=== PATIENT | male | born 1980 | race Caucasian/White ===

== ENCOUNTER 2016-09-21 12:34 | Emergency (ER) | payer SELFPAY ==
[~2016-09-21] VITALS: Ht 190.5 cm; Wt 90.0 kg
[~2016-09-21 12:34] MED LIST: BACITUD TOP; BACTDS PO; CEPH-443 PO; IBUP-1542 PO
[2016-09-21 12:43] VITALS: Ht 190.5 cm; Wt 90.0 kg
[2016-09-21 13:00] VITALS: BP 132/88; PULSE 86; RESP 20; TEMP 98.3
[2016-09-21] MEDS ORDERED: TETRACAINE 0.5% 4 ML OPH RIGHT EYE ONE (13:00)
--- NOTE | 2016-09-21 15:07 | ERD ---
ER Documentation Chief Complaint Date/Time DATE: 09/21/16 TIME: 15:06 Chief Complaint BIB [facility] 39 FOR EVAL OF ETOH. UNSTEADY GAIT HPI This is a 36-year-old male presents to the emergency room for evaluation of alcohol ingestion. The patient denies any homicidal ideation or suicidal ideation and states that he did drink alcohol earlier this morning. This patient denies any other coingestions and came to the ER after Faith called 911 ROS All systems reviewed and are negative except as per history of present illness. Medications Home Meds Discontinued Scripts Ibuprofen* (Motrin*) 600 Mg Tab, 600 MG PO Q6H Y for PAIN, #15 TAB Prov:GRACIELA ELLIS MD 12/16/15 Bacitracin* (Bacitracin Oint (UD)*) 1 Applic Oint, 1 APPLIC TOP BID for 10 Days , PKT APPLY TO Prov:LAVERN MALDONADO MD 12/03/15 Cephalexin* (Keflex*) 500 Mg Capsule, 500 MG PO QID for 10 Days, CAP Prov:LAVERN MALDONADO MD 12/03/15 Sulfamethoxazole-Trimethoprim* (Bactrim* DS) 800-160 Mg Tab, 1 TAB PO BID for 10 Days, TAB Prov:LAVERN MALDONADO MD 12/03/15 Allergies Allergies: Coded Allergies: No Known Drug Allergy (Verified Allergy, Mild, 12/03/15) PMhx/Soc History of Surgery: No Anesthesia Reaction: No Hx Neurological Disorder: No Hx Respiratory Disorders: Yes (ASTHMA ) Hx Cardiac Disorders: No Hx Psychiatric Problems: No Hx Miscellaneous Medical Probl: Yes (Right foot sprain 2007) Hx Alcohol Use: No Hx Substance Use: Yes (METH, MARIJUANA ) Hx Tobacco Use: No Physical Exam Vitals Vital Signs Date Time Temp Pulse Resp B/P Pulse Ox O2 Delivery O2 Flow Rate FiO2 09/21/16 12:43 98.3 78 19 125/76 98 Physical Exam Const: Disheveled appearance Head: Atraumatic Eyes: Normal Conjunctiva ENT: Normal External Ears, Nose and Mouth. Neck: Full range of motion..~ No meningismus. Resp: Clear to auscultation bilaterally Cardio: Regular rate and rhythm, no murmurs Abd: Soft, non tender, non distended. Normal bowel sounds Skin: No petechiae or rashes Back: No midline or flank tenderness Ext: No cyanosis, or edema Neur: Awake and alert Psych: Normal Mood and Affect Results 24 hrs Laboratory Tests Test 09/21/16 13:52 Bedside Glucose 98mg/dL Current Medications Medications (Trade) Dose Ordered Sig/Camilla Route PRN Reason Start Time Stop Time Status Last Admin Dose Admin Tetracaine HCl (Tetracaine 0.5% Steri-Unit Amy) 1 drop ONCE ONCE RIGHT EYE 09/21/16 13:00 09/21/16 13:00 DC Procedures/MDM This 36-year-old male presents to the emergency room for evaluation of alcohol ingestion. This patient I did smell of alcohol, is hemodynamically stable. Not hypoglycemic will be discharged home when he is clinically sober. Departure Diagnosis: Primary Impression: Alcohol abuse Condition: Stable BRITTNEY TOMAS DO Sep 21, 2016 15:07
== END 2016-09-21 16:19 | disposition home or self-care (01) ==
LOC: E/R 12:34
DX: F10.129 Alcohol abuse with intoxication, unspecified (principal); J45.909 Unspecified asthma, uncomplicated
CPT/HCPCS: 82962; 99283

== ENCOUNTER 2016-10-13 14:42 | Emergency (ER) | payer OTHER ==
[~2016-10-13] VITALS: Ht 195.6 cm; Wt 89.0 kg
[2016-10-13 14:47] VITALS: Ht 195.6 cm; Wt 89.0 kg
[2016-10-13] MEDS ORDERED: LORAZEPAM 1 MG TAB PO ONE (15:30)
--- NOTE | 2016-10-13 15:39 | ERA ---
ER Documentation Chief Complaint Date/Time DATE: 10/13/16 Chief Complaint smoked the marijuana, has dry mouth, anxious HPI The patient is a 36-year-old male, presenting to the ER because of acute anxiety after he did marijuana. He has similar symptoms previously, denies auditory, visual hallucination, suicidal, homicidal ideation. He simply wanted medication to calm him down. He denies fever, chills, neck pain, chest pain, abdominal pain, vomiting, dysuria, diarrhea, constipation. He drinks, smokes Past medical history: Anxiety Past surgical history: None ROS All systems reviewed and are negative except as per history of present illness. Medications Home Meds No Active Prescriptions or Reported Meds Allergies Allergies: Coded Allergies: No Known Drug Allergy (Verified Allergy, Mild, 10/13/16) PMhx/Soc History of Surgery: No Anesthesia Reaction: No Hx Neurological Disorder: No Hx Respiratory Disorders: No Hx Cardiac Disorders: No Hx Psychiatric Problems: No Hx Miscellaneous Medical Probl: No Hx Alcohol Use: No Hx Substance Use: Yes (meth use 10/13/16) Hx Tobacco Use: No Smoking Status: Current every day smoker Physical Exam Vitals Vital Signs Date Time Temp Pulse Resp B/P Pulse Ox O2 Delivery O2 Flow Rate FiO2 10/13/16 14:47 98.7 71 18 102/52 98 Physical Exam Const: No acute distress. Very anxious Head: Atraumatic. Eyes: Normal Conjunctiva. ENT: Normal External Ears, Nose and Mouth. Neck: Full range of motion. No meningismus. Resp: Clear to auscultation bilaterally. Cardio: Regular rate and rhythm, no murmurs. Abd: Soft, non distended, normal bowel sounds, non tender. Skin: No petechiae or rashes. Back: No midline or flank tenderness. Ext: No cyanosis, or edema. Neur: Awake and alert. No focal deficit Psych: Normal Mood and Affect. Results 24 hrs Current Medications Medications (Trade) Dose Ordered Sig/Camilla Route PRN Reason Start Time Stop Time Status Last Admin Dose Admin Lorazepam (Ativan) 2 mg ONCE ONCE PO 10/13/16 15:30 10/13/16 15:31 DC 10/13/16 15:15 Procedures/MDM MEDICAL MAKING DECISION: The patient is a 36-year-old male, presenting with acute anxiety after substance abuse , he was treated with Ativan 2 mg p.o. and was able to tolerate p.o. without any difficulty. The differential diagnoses considered include but are not limited to acute anxiety attack, acute panic attack, drug-induced psychosis, decompensated psychiatric illness Departure Diagnosis: Primary Impression: Anxiety attack Additional Impression: Substance abuse Condition: Good Comments I discussed the findings with the patient. I advised the patient to follow-up with the primary physician in about 1-2 days, sooner if needed and return if any concern. LAVERN MALDONADO MD Oct 13, 2016 15:39
== END 2016-10-13 15:54 | disposition home or self-care (01) ==
LOC: E/R 14:42
DX: F41.9 Anxiety disorder, unspecified (principal); F12.10 Cannabis abuse, uncomplicated; F17.210 Nicotine dependence, cigarettes, uncomplicated; R40.2142 Coma scale, eyes open, spontaneous, at arrival to emergency department; R40.2252 Coma scale, best verbal response, oriented, at arrival to emergency department; R40.2362 Coma scale, best motor response, obeys commands, at arrival to emergency department
CPT/HCPCS: 99283

== ENCOUNTER 2016-10-14 14:43 | Emergency (ER) | payer OTHER ==
[~2016-10-14] VITALS: Ht 185.4 cm; Wt 70.0 kg
[2016-10-14 14:49] VITALS: Ht 185.4 cm; Wt 70.0 kg
[2016-10-14] MEDS ORDERED: LORAZEPAM 1 MG TAB PO ONE (16:30)
--- NOTE | 2016-10-14 16:32 | ERD ---
ER Documentation Chief Complaint Date/Time DATE: 10/14/16 TIME: 16:30 Chief Complaint anxiety and needs medication refill HPI This a 36-year-old male who presents the emergency department today feeling anxious after using marijuana yesterday. Patient was seen here for the same yesterday and states that he lost his "recipe". States that he has had the similar feelings in the past. States he is having difficulty sleeping at night. Denies any fevers or chills. Denies any chest pain, shortness of breath. Denies any suicidal or homicidal ideation. ROS All systems reviewed and are negative except as per history of present illness. Medications Home Meds No Active Prescriptions or Reported Meds Allergies Allergies: Coded Allergies: No Known Drug Allergy (Verified Allergy, Mild, 10/13/16) PMhx/Soc History of Surgery: No Anesthesia Reaction: No Hx Neurological Disorder: No Hx Respiratory Disorders: No Hx Cardiac Disorders: No Hx Psychiatric Problems: No Hx Miscellaneous Medical Probl: No Hx Alcohol Use: No Hx Substance Use: Yes (meth use 10/13/16) Hx Tobacco Use: No Physical Exam Vitals Vital Signs Date Time Temp Pulse Resp B/P Pulse Ox O2 Delivery O2 Flow Rate FiO2 10/14/16 14:49 98.2 98 18 113/56 96 Physical Exam Const: No acute distress Head: Atraumatic Eyes: Normal Conjunctiva ENT: Normal External Ears, Nose and Mouth. Neck: Full range of motion..~ No meningismus. Resp: Clear to auscultation bilaterally Cardio: Regular rate and rhythm, no murmurs Abd: Soft, non tender, non distended. Normal bowel sounds Skin: No petechiae or rashes Neur: Awake and alert Psych: Normal Mood and Affect Results 24 hrs Current Medications Medications (Trade) Dose Ordered Sig/Camilla Route PRN Reason Start Time Stop Time Status Last Admin Dose Admin Lorazepam (Ativan) 1 mg ONCE ONCE PO 10/14/16 16:30 10/14/16 16:31 DC Procedures/MDM This is a 36-year-old male who presents to the emergency department today complaining of anxiety after using marijuana. Patient is afebrile and otherwise well-appearing. He is talkative in the exam room. He is in no acute distress. . Patient symptoms at this time most consistent with anxiety.I do not feel the patient requires further workup or imaging at this time. Low suspicion for cardiac or pulmonary cause for anxiety. Patient was seen here for the same thing yesterday and was given 2 mg of Ativan. Patient was given 1 mg of Ativan here today. I have explained to the patient that I will not be sending him home on any occasions given his drug abuse. Patient was instructed to stop using marijuana. Patient understood. Patient denies any suicidal or homicidal ideation I do not feel that he is a risk to himself or his others. At this time the patient is stable for discharge and outpatient management. Patient should follow up with their PCP in the next 1-2 days. They may return to the emergency department sooner for any persistent or worsening of symptoms. Patient understood and agreed with the plan. Departure Diagnosis: Primary Impression: Anxiety Additional Impression: Drug use Condition: MADELINE Patel PA-C Oct 14, 2016 16:32
== END 2016-10-14 16:45 | disposition home or self-care (01) ==
LOC: FTE 14:43
DX: F41.9 Anxiety disorder, unspecified (principal); F12.10 Cannabis abuse, uncomplicated
CPT/HCPCS: 99283

== ENCOUNTER 2016-10-27 16:44 | Emergency (ER) | payer MEDICAID, OTHER ==
[~2016-10-27] VITALS: Ht 190.5 cm; Wt 120.0 kg
[2016-10-27 16:57] VITALS: Ht 190.5 cm; Wt 120.0 kg
[2016-10-27] MEDS ORDERED: LORA1TAB PO (18:35)
--- NOTE | 2016-10-27 18:41 | ERD ---
ER Documentation Chief Complaint Date/Time DATE: 10/27/16 TIME: 18:39 Chief Complaint JAW PAIN SINCE YESTERDAY,NASAL CONGESTION.ANXIETY. HPI 36-year-old male history of anxiety presents asking for medication refill of anxiety medication. He states that yesterday he fell has a jaw fracture. He states that he has medications for this. He states that he is feeling anxious because the air conditioning is on. The patient is asking for refill of Ativan. He denies any suicidal homicidal thoughts. No other complaints. ROS All systems reviewed and are negative except as per history of present illness. Medications Home Meds Active Scripts Lorazepam* (Lorazepam*) 1 Mg Tablet, 1 MG PO Q8H Y for ANXIETY, #8 TAB Prov:SIMON MENDEZ MD 10/27/16 Allergies Allergies: Coded Allergies: No Known Drug Allergy (Verified Allergy, Mild, 10/13/16) PMhx/Soc History of Surgery: No Anesthesia Reaction: No Hx Neurological Disorder: No Hx Respiratory Disorders: No Hx Cardiac Disorders: No Hx Psychiatric Problems: Yes (anxiety) Hx Miscellaneous Medical Probl: Yes (broken jaw) Hx Alcohol Use: No Hx Substance Use: Yes (meth use 10/13/16) Hx Tobacco Use: Yes Smoking Status: Current every day smoker FmHx Family History: No diabetes Physical Exam Vitals Vital Signs Date Time Temp Pulse Resp B/P Pulse Ox O2 Delivery O2 Flow Rate FiO2 10/27/16 16:57 98.1 68 18 170/98 98 Physical Exam General: Well developed, well nourished, no acute distress Head: Normocephalic, atraumatic. Eyes: EOM intact ENT: Moist mucous membranes Neck: Full ROM Respiratory: No respiratory distress Cardiovascular: Good capillary refil Abdominal: Nondistended : Deferred MSK: No edema, no unilateral swelling, 5/5 strength Neurologic: Alert and oriented, moving all extremities, normal speech, steady gait Skin: No rash Psych: Anxious mood, bizarre affect, no suicidal ideation Procedures/MDM The patient has no evidence of acute psychosis, no suicidal thoughts. The patient is asking for refill benzodiazepines. I do not feel that a prolonged prescription is necessary. The patient was advised to follow-up with primary care physician for these issues. Several tablets of Ativan will be provided for anxiety at home. The patient can be safely discharged. We discussed follow up with the patient's primary care doctor within 24 to 48 hours as needed. We also discussed return to the emergency room for worsening symptoms or worsening condition. Outpatient referral: [None required] Discharge Medications: Ativan 1 mg a total of 8 tablets Departure Diagnosis: Primary Impression: Anxiety Additional Impression: Encounter for medication refill Condition: Stable Patient Instructions: Taking Medication Safely, Anxiety Reaction Referrals: [facility] YOU HAVE RECEIVED A MEDICAL SCREENING EXAM AND THE RESULTS INDICATE THAT YOU DO NOT HAVE A CONDITION THAT REQUIRES URGENT TREATMENT IN THE EMERGENCY DEPARTMENT. FURTHER EVALUATION AND TREATMENT OF YOUR CONDITION CAN WAIT UNTIL YOU ARE SEEN IN YOUR DOCTORS OFFICE WITHIN THE NEXT 1-2 DAYS. IT IS YOUR RESPONSIBILITY TO MAKE AN APPOINTMENT FOR FOLOW-UP CARE. IF YOU HAVE A PRIMARY DOCTOR --you should call your primary doctor and schedule an appointment IF YOU DO NOT HAVE A PRIMARY DOCTOR YOU CAN CALL OUR PHYSICIAN REFERRAL HOTLINE AT IF YOU CAN NOT AFFORD TO SEE A PHYSICIAN YOU CAN CHOSE FROM THE FOLLOWING [facility] [address] [facility] [address] [facility] [facility] [address] [facility] [address] [facility] [address] [facility]. [facility] [address] [facility]. [facility] YOU HAVE RECEIVED A MEDICAL SCREENING EXAM AND THE RESULTS INDICATE THAT YOU DO NOT HAVE A CONDITION THAT REQUIRES URGENT TREATMENT IN THE EMERGENCY DEPARTMENT. FURTHER EVALUATION AND TREATMENT OF YOUR CONDITION CAN WAIT UNTIL YOU ARE SEEN IN YOUR DOCTORS OFFICE WITHIN THE NEXT 1-2 DAYS. IT IS YOUR RESPONSIBILITY TO MAKE AN APPOINTMENT FOR FOLOW-UP CARE. IF YOU HAVE A PRIMARY DOCTOR --you should call your primary doctor and schedule and appointment IF YOU DO NOT HAVE A PRIMARY DOCTOR YOU CAN CALL OUR PHYSICIAN REFERRAL HOTLINE AT . IF YOU CAN NOT AFFORD TO SEE A PHYSICIAN YOU CAN CHOSE FROM THE FOLLOWING [facility]: [facility] [address] [place] [address] [facility] [address] [place] [address] [facility] [address] [place] [address] Additional Instructions: Call your primary care doctor TOMORROW for an appointment during the next 1 WEEK.Tell the national secretary that you were referred from this facility.See the doctor sooner or return here if your condition worsens before your appointment time. SIMON MENDEZ MD Oct 27, 2016 18:41
[2016-10-27 18:43] VITALS: BP 160/78
== END 2016-10-27 18:43 | disposition home or self-care (01) ==
LOC: FTE 16:44
DX: F41.9 Anxiety disorder, unspecified (principal); F17.210 Nicotine dependence, cigarettes, uncomplicated
CPT/HCPCS: 99281

== ENCOUNTER 2016-11-08 09:14 | Emergency (ER) | payer MEDICAID ==
[~2016-11-08] VITALS: Ht 188 cm; Wt 85.0 kg
[~2016-11-08 09:14] MED LIST changes: -BACITUD TOP; -BACTDS PO; -CEPH-443 PO; -IBUP-1542 PO; +LORA1TAB PO
[2016-11-08 09:17] VITALS: Ht 188 cm; Wt 85.0 kg
--- NOTE | 2016-11-08 10:30 | ERD ---
ER Documentation Chief Complaint Date/Time DATE: 11/08/16 TIME: 10:27 Chief Complaint headcahe , nausea with dizziness since yesterday HPI Patient is a 36-year-old male who presents with gradual onset, intermittent, moderate brown liquid diarrhea for 3-4 days. The patient reports since yesterday he has felt lightheaded. He reports nausea, no vomiting, no abdominal pain. He does report subjective fever. He also reports feeling anxious, which she has had in the past. No cough, no dysuria. ROS All systems reviewed and are negative except as per history of present illness. Medications Home Meds Active Scripts Loperamide Hcl* (Imodium*) 2 Mg Capsule, 2 MG PO BID Y for DIARRHEA, #6 CAP MAX 16 mg/day Prov:NICHOLE RENE MD 11/08/16 Lorazepam* (Lorazepam*) 1 Mg Tablet, 1 MG PO Q8H Y for ANXIETY, #8 TAB Prov:SIMON MENDEZ MD 10/27/16 Allergies Allergies: Coded Allergies: No Known Drug Allergy (Verified Allergy, Mild, 10/13/16) PMhx/Soc Past medical history: Anxiety Past surgical history: Denies Social history: Tobacco, denies current alcohol or illicit drugs. Medical and Surgical Hx: pt denies Medical Hx, pt denies Surgical Hx History of Surgery: No Anesthesia Reaction: No Hx Neurological Disorder: No Hx Respiratory Disorders: No Hx Cardiac Disorders: No Hx Psychiatric Problems: Yes (anxiety) Hx Miscellaneous Medical Probl: Yes (broken jaw) Hx Alcohol Use: No Hx Substance Use: Yes (meth use 10/13/16) Hx Tobacco Use: Yes Smoking Status: Current every day smoker FmHx Family History: No coronary disease, No diabetes Physical Exam Vitals Vital Signs Date Time Temp Pulse Resp B/P Pulse Ox O2 Delivery O2 Flow Rate FiO2 11/08/16 09:17 99.1 98 18 109/74 97 Physical Exam Const: Alert, no acute distress, polite, unkempt Head: Atraumatic Eyes: Normal Conjunctiva, no pallor or icterus ENT: Normal External Ears, Nose and Mouth. Neck: Full range of motion..~ No meningismus. Resp: Clear to auscultation bilaterally, no wheezes, no rales Cardio: Regular rate and rhythm, no murmurs Abd: Soft, non tender, non distended. Skin: No petechiae or rashes Back: No midline or flank tenderness Ext: No cyanosis, or edema Neur: Awake and alert, cranial nerves II through XII intact bilaterally, moves and feels 4 extremities appropriately. Psych: Normal Mood and Affect Result Diagram: 11/08/16 1041 11/08/16 1041 Results 24 hrs Laboratory Tests Test 11/08/16 10:41 White Blood Count 5.410^3/ul Red Blood Count 4.3210^6/ul Hemoglobin 13.3g/dl Hematocrit 40.7% Mean Corpuscular Volume 94.2fl Mean Corpuscular Hemoglobin 30.8pg Mean Corpuscular Hemoglobin Concent 32.7g/dl Red Cell Distribution Width 12.7% Platelet Count 56365^3/UL Mean Platelet Volume 10.1fl Neutrophils % 76.0% Lymphocytes % 16.6% Monocytes % 5.7% Eosinophils % 1.3% Basophils % 0.2% Nucleated Red Blood Cells % 0.0/100WBC Neutrophils # 4.110^3/ul Lymphocytes # 0.910^3/ul Monocytes # 0.310^3/ul Eosinophils # 0.110^3/ul Basophils # 0.010^3/ul Nucleated Red Blood Cells # 0.010^3/ul Sodium Level 145mmol/L Potassium Level 4.2mmol/L Chloride Level 105mmol/L Carbon Dioxide Level 30mmol/L Anion Gap 14 Blood Urea Nitrogen 14mg/dl Creatinine 0.87mg/dl Glucose Level 80mg/dl Calcium Level 9.2mg/dl Procedures/MDM EKG read by me: Time 1036, rate 66 Rhythm: Normal sinus [place]: Normal Intervals: Incomplete right bundle branch block ST-T waves: Nonspecific T-wave inversions in leads aVL and V2 Ectopy: No Q-waves: No Impression: No evidence of ischemia or arrhythmia MDM: Patient is a 36-year-old male who presents with 4 days of diarrhea and 1 day of dizziness, associated with anxiety that he describes as similar to previous panic attacks. The patient has had recent previous visits to the ER for anxiety attack, and was prescribed lorazepam. With regards to his workup for dizziness and diarrhea, there are no signs of dehydration, no signs of anemia, no significant abnormalities on EKG. There are no symptoms to suggest other serious medical condition. I believe that the patient's symptoms are primarily related to his panic attacks. I will prescribe the patient loperamide for his diarrheal symptoms. There is no fever or bloody stool to suggest invasive bacterial infection. Devised patient to drink plenty of fluids , and to follow-up with her PMD or psychiatrist for further treatment of his anxiety. Departure Diagnosis: Primary Impression: Diarrhea Diarrhea type: unspecified type Qualified Code: R19.7 - Diarrhea, unspecified type Additional Impressions: Dizziness Anxiety attack Condition: Stable NICHOLE RENE MD Nov 08, 2016 10:30
[2016-11-08 11:07] LABS: ADD SCAN DIFF NO
[2016-11-08 11:08] LABS: BASOPHILS % 0.2 % (0.0-2.0); EOSINOPHILS # 0.1 10^3/ul (0.0-0.5); EOSINOPHILS % 1.3 % (0.0-7.0); HEMATOCRIT 40.7 % (42.0-52.0); HEMOGLOBIN 13.3 g/dl (14.0-18.0); LYMPHOCYTES # 0.9 10^3/ul (0.8-2.9); LYMPHOCYTES % 16.6 % (15.0-51.0); MEAN CORPUSCULAR HEMOGLOBIN 30.8 pg (29.0-33.0); MEAN CORPUSCULAR HGB CONC 32.7 g/dl (32.0-37.0); MEAN CORPUSCULAR VOLUME 94.2 fl (82.0-101.0); MEAN PLATELET VOLUME 10.1 fl (7.4-10.4); MONOCYTE # 0.3 10^3/ul (0.3-0.9); MONOCYTES % 5.7 % (0.0-11.0); NEUTROPHIL # 4.1 10^3/ul (1.6-7.5); PLATELET COUNT 164 10^3/UL (140-415); RED BLOOD COUNT 4.32 10^6/ul (4.70-6.10); RED CELL DISTRIBUTION WIDTH 12.7 % (11.5-14.5); WHITE BLOOD COUNT 5.4 10^3/ul (4.8-10.8)
[2016-11-08 11:18] LABS: POTASSIUM 4.2 mmol/L (3.5-5.1)
[2016-11-08 11:20] LABS: CREATININE 0.87 mg/dl (0.61-1.24)
[2016-11-08 11:21] LABS: CALCIUM 9.2 mg/dl (8.4-10.2)
[2016-11-08] MEDS ORDERED: LOPE2CAP PO (12:10)
== END 2016-11-08 13:44 | disposition home or self-care (01) ==
LOC: FTE 09:14
DX: R19.7 Diarrhea, unspecified (principal); R42 Dizziness and giddiness; F41.9 Anxiety disorder, unspecified; F17.210 Nicotine dependence, cigarettes, uncomplicated
CPT/HCPCS: 36415; 80048; 85025; 93005; Z7502

== ENCOUNTER 2016-12-09 11:26 | Emergency (ER) | payer MEDICAID ==
[~2016-12-09] VITALS: Ht 190.5 cm; Wt 85.0 kg
[~2016-12-09 11:26] MED LIST changes: +LOPE2CAP PO
[2016-12-09 11:28] VITALS: Ht 190.5 cm; Wt 85.0 kg
[2016-12-09] MEDS ORDERED: NPH10OT BOTH EARS (12:14)
[2016-12-09] MEDS ORDERED: IBUP-1542 PO (12:14)
[2016-12-09] MEDS ORDERED: CARB15DR48 BOTH EARS (12:14)
--- NOTE | 2016-12-09 12:19 | ERD ---
ER Documentation Chief Complaint Date/Time DATE: 12/09/16 TIME: 12:14 Chief Complaint b/l ear pain x 2 days HPI Patient is a 36-year-old male who presents to the emergency department bilateral ear pain 2 days. Patient denies any active drainage or bleeding. Patient denies any fevers, chills, nausea, vomiting, cough, rhinorrhea or throat pain. Patient denies any recent travel. No sick contacts. Per chart review, patient has numerous visitations to the emergency department in the last year. ROS All systems reviewed and are negative except as per history of present illness. Medications Home Meds Active Scripts Neomycin/Polymyxin/Hydrocort* (Cortisporin* Otic) 10 Ml Susp, 4 DROP BOTH EARS QID for 7 Days, EA Prov:DO HERNANDEZ PA-C 12/09/16 Carbamide Peroxide* (Debrox*) 6.5% - 15 Ml Drops, 10 DROP BOTH EARS BID, #1 BOTTLE Prov:DO HERNANDEZ PA-C 12/09/16 Ibuprofen* (Motrin*) 600 Mg Tab, 600 MG PO Q6, #30 TAB Prov:DO HERNANDEZ PA-C 12/09/16 Loperamide Hcl* (Imodium*) 2 Mg Capsule, 2 MG PO BID Y for DIARRHEA, #6 CAP MAX 16 mg/day Prov:NICHOLE RENE MD 11/08/16 Lorazepam* (Lorazepam*) 1 Mg Tablet, 1 MG PO Q8H Y for ANXIETY, #8 TAB Prov:SIMON MENDEZ MD 10/27/16 Allergies Allergies: Coded Allergies: No Known Drug Allergy (Verified Allergy, Mild, 10/13/16) PMhx/Soc History of Surgery: No Anesthesia Reaction: No Hx Neurological Disorder: No Hx Respiratory Disorders: No Hx Cardiac Disorders: No Hx Psychiatric Problems: Yes (anxiety) Hx Miscellaneous Medical Probl: Yes (broken jaw) Hx Alcohol Use: No Hx Substance Use: Yes (meth use 10/13/16) Hx Tobacco Use: Yes FmHx Family History: No diabetes Physical Exam Vitals Vital Signs Date Time Temp Pulse Resp B/P Pulse Ox O2 Delivery O2 Flow Rate FiO2 12/09/16 11:28 98.3 86 16 119/69 98 Physical Exam GENERAL: Disheveled male. Appears in no acute distress. HEAD: Normocephalic, atraumatic. No deformities or ecchymosis. EYE: Pupils equal, round, and reactive to light. EOMs intact. No conjunctival erythema. No eye discharge. ENT: External ear without any masses or tenderness. Difficulty with visualizing right tympanic membrane secondary to cerumen impaction. Left tympanic membrane appear non-erythematous, non-bulging. Nasal mucosa pink with no discharge. Oropharynx is pink without any tonsillar erythema or exudates. No uvula deviation. No kissing tonsils. NECK: Supple. No meningismus. Normal ROM of the neck. LUNG: Clear to auscultation bilaterally. No rhonchi, wheezing, rales or coarse breath sounds. HEART: Regular rate and rhythm. No murmurs, rubs or gallops. BACK: No midline tenderness. EXTREMITES: Equal pulses bilaterally. No peripheral clubbing, cyanosis or edema. No unilateral leg swelling. NEUROLOGIC: Alert and oriented to person, place and time. Moving all four extremities. 5/5 strength in all extremities. Normal speech. Steady gait. SKIN: Normal color. Warm and dry. No rashes or lesions. Procedures/MDM MEDICAL DECISION MAKING: This is a 36-year-old male who presents with bilateral ear pain 2 days. Vital signs were reviewed. Patient was afebrile. Patient was not hypoxic. Ear exam revealed normal-appearing left tympanic membrane, difficulty with visualizing right tympanic membrane secondary to cerumen impaction. Ear lavage was performed using H2O, hydrogen peroxide mix. No trauma or comp occasions were noted. TM was visualized post-irrigation without any erythema or perforation. Patient reported normal hearing. Given that irrigation was performed, patient will be sent home with anabiotic eardrops to prevent any infections. Given these findings, the patient's presentation is most consistent with cerumen impaction and ear pain. I have a much lower clinical suspicion for tympanic membrane perforation, mastoiditis, otic barotrauma, TMJ dysfunction, strep pharyngitis, pneumonia, sepsis, meningitis. PRESCRIPTIONS: Ibuprofen, Debrox, Corticosporin DISCHARGE: At this time, patient is stable for discharge and outpatient management. I have instructed the patient to follow-up with his/her primary care physician in 1-2 days. I have discussed with the patient the possibility of needing to see a specialist for further workup and diagnostic studies if the pain persists. I have instructed the patient to promptly return to the ER at any time for any new or worsening symptoms including increased pain, fever, swelling, discharge or hearing loss. The patient and/or family expressed understanding of and agreement with this plan. All questions were answered. Home care instructions were provided. Departure Diagnosis: Primary Impression: Acute pain of both ears Condition: Stable Patient Instructions: Cerumen Impaction, Home Care Referrals: COMMUNITY CLINICS YOU HAVE RECEIVED A MEDICAL SCREENING EXAM AND THE RESULTS INDICATE THAT YOU DO NOT HAVE A CONDITION THAT REQUIRES URGENT TREATMENT IN THE EMERGENCY DEPARTMENT. FURTHER EVALUATION AND TREATMENT OF YOUR CONDITION CAN WAIT UNTIL YOU ARE SEEN IN YOUR DOCTORS OFFICE WITHIN THE NEXT 1-2 DAYS. IT IS YOUR RESPONSIBILITY TO MAKE AN APPOINTMENT FOR FOLOW-UP CARE. IF YOU HAVE A PRIMARY DOCTOR --you should call your primary doctor and schedule an appointment IF YOU DO NOT HAVE A PRIMARY DOCTOR YOU CAN CALL OUR PHYSICIAN REFERRAL HOTLINE AT IF YOU CAN NOT AFFORD TO SEE A PHYSICIAN YOU CAN CHOSE FROM THE FOLLOWING [facility] [address] [facility] [address] [facility] [facility] [address] [facility] [address] [facility] [address] [facility]. [facility]. [address] [facility]. [facility] YOU HAVE RECEIVED A MEDICAL SCREENING EXAM AND THE RESULTS INDICATE THAT YOU DO NOT HAVE A CONDITION THAT REQUIRES URGENT TREATMENT IN THE EMERGENCY DEPARTMENT. FURTHER EVALUATION AND TREATMENT OF YOUR CONDITION CAN WAIT UNTIL YOU ARE SEEN IN YOUR DOCTORS OFFICE WITHIN THE NEXT 1-2 DAYS. IT IS YOUR RESPONSIBILITY TO MAKE AN APPOINTMENT FOR FOLOW-UP CARE. IF YOU HAVE A PRIMARY DOCTOR --you should call your primary doctor and schedule and appointment IF YOU DO NOT HAVE A PRIMARY DOCTOR YOU CAN CALL OUR PHYSICIAN REFERRAL HOTLINE AT . IF YOU CAN NOT AFFORD TO SEE A PHYSICIAN YOU CAN CHOSE FROM THE FOLLOWING [facility]: [address] [place] [address] [facility] [address] [place] [address] [facility] [address] [place] [address] Additional Instructions: Call your primary care doctor TOMORROW for an appointment during the next 1-2 days.See the doctor sooner or return here if your condition worsens before your appointment time. DO HERNANDEZ PA-C December 09, 2016 12:19
[2016-12-09 13:00] VITALS: BP 109/64; PULSE 73; RESP 18; TEMP 97.7
== END 2016-12-09 13:00 | disposition home or self-care (01) ==
LOC: FTE 11:26
DX: H92.03 Otalgia, bilateral (principal); H61.21 Impacted cerumen, right ear; Z87.891 Personal history of nicotine dependence
CPT/HCPCS: 69209; Z7502

== ENCOUNTER 2016-12-11 10:00 | Emergency (ER) | payer MEDICAID ==
[~2016-12-11] VITALS: Ht 190.5 cm; Wt 85.0 kg
[~2016-12-11 10:00] MED LIST changes: +CARB15DR48 BOTH EARS; +IBUP-1542 PO; +NPH10OT BOTH EARS
[2016-12-11 10:02] VITALS: Ht 190.5 cm; Wt 85.0 kg
[2016-12-11] MEDS ORDERED: AMO500 PO (11:38)
[2016-12-11] MEDS ORDERED: IBUP-1542 PO (11:38)
[2016-12-11] MEDS ORDERED: ACET1TAB40 PO (11:38)
--- NOTE | 2016-12-11 11:40 | ERD ---
ER Documentation Chief Complaint Date/Time DATE: 12/11/16 TIME: 11:39 Chief Complaint LEFT EARACHE X 2 DAYS HPI This 36-year-old male presents with left ear pain for last 2 days. He has mild cough congestion. He believes he might of had some bleeding or discharge. Denies fevers, vomiting, shortness breath or chest pain. ROS All systems reviewed and are negative except as per history of present illness. Medications Home Meds Active Scripts Acetaminophen with Codeine (Acetaminophen-Cod #3 Tablet) 1 Each Tablet, 1 TAB PO Q6H Y for PAIN, #7 TAB Prov:GRACIELA ELLIS MD 12/11/16 Amoxicillin* (Amoxicillin*) 500 Mg Cap, 500 MG PO TID for 10 Days, CAP Prov:GRACIELA ELLIS MD 12/11/16 Ibuprofen* (Motrin*) 600 Mg Tab, 600 MG PO Q6, #15 TAB Prov:GRACIELA ELLIS MD 12/11/16 Neomycin/Polymyxin/Hydrocort* (Cortisporin* Otic) 10 Ml Susp, 4 DROP BOTH EARS QID for 7 Days, EA Prov:DO HERNANDEZ PA-C 12/09/16 Carbamide Peroxide* (Debrox*) 6.5% - 15 Ml Drops, 10 DROP BOTH EARS BID, #1 BOTTLE Prov:DO HERNANDEZ PA-C 12/09/16 Ibuprofen* (Motrin*) 600 Mg Tab, 600 MG PO Q6, #30 TAB Prov:DO HERNANDEZ PA-C 12/09/16 Loperamide Hcl* (Imodium*) 2 Mg Capsule, 2 MG PO BID Y for DIARRHEA, #6 CAP MAX 16 mg/day Prov:NICHOLE RENE MD 11/08/16 Lorazepam* (Lorazepam*) 1 Mg Tablet, 1 MG PO Q8H Y for ANXIETY, #8 TAB Prov:SIMON MENDEZ MD 10/27/16 Allergies Allergies: Coded Allergies: No Known Drug Allergy (Verified Allergy, Mild, 10/13/16) PMhx/Soc History of Surgery: No Anesthesia Reaction: No Hx Neurological Disorder: No Hx Respiratory Disorders: No Hx Cardiac Disorders: No Hx Psychiatric Problems: Yes (anxiety) Hx Miscellaneous Medical Probl: Yes (broken jaw) Hx Alcohol Use: No Hx Substance Use: Yes (meth use 10/13/16) Hx Tobacco Use: Yes Smoking Status: Current every day smoker Physical Exam Vitals Vital Signs Date Time Temp Pulse Resp B/P Pulse Ox O2 Delivery O2 Flow Rate FiO2 12/11/16 10:02 97.5 61 18 123/56 98 Physical Exam Const: [] Alert, [id number] per Head: Atraumatic Eyes: Normal Conjunctiva ENT: Normal External Ears, Nose and Mouth. Left TM evidence with decreased light reflex. No mastoid tenderness. No TMJ tenderness no discharge or pain with passive range of motion of the ear. Neck: Full range of motion..~ No meningismus. Resp: Clear to auscultation bilaterally Cardio: Regular rate and rhythm, no murmurs Abd: Soft, non tender, non distended. Normal bowel sounds Skin: No petechiae or rashes Back: No midline or flank tenderness Ext: No cyanosis, or edema Neur: Awake and alert Psych: Normal Mood and Affect Results 24 hrs Current Medications Medications (Trade) Dose Ordered Sig/Camilla Route PRN Reason Start Time Stop Time Status Last Admin Dose Admin Ibuprofen (Motrin) 600 mg ONCE ONCE PO 12/11/16 12:00 12/11/16 12:01 Acetaminophen/ Codeine Phosphate (Tylenol No.3) 1 tab ONCE ONCE PO 12/11/16 12:00 12/11/16 12:01 Procedures/MDM Patient presents with signs and symptoms of left ear pain with signs of otitis media. There is no evidence of mastoiditis, cellulitis, meningitis, additional causes of presenting complaints. Is given ibuprofen and Tylenol 3 by mouth and will be treated with amoxicillin ibuprofen and Tylenol with 3 for otitis media. Patient is advised to recheck for new or worsening symptoms with primary care doctor. The patient was stable with no new complaints during the ER course. Clinically, there is no current evidence to suggest meningitis, sepsis, acute abdomen, pneumonia, acute coronary syndrome, pulmonary embolism, or any other emergent condition appearing to require further evaluation or hospitalization. The patient should certainly return for any new or worsening symptoms per the aftercare instructions. They should otherwise follow-up with her primary care doctor for reevaluation this week. Departure Diagnosis: Primary Impression: Otitis media Otitis media type: suppurative Laterality: left Chronicity: acute Recurrence: not specified as recurrent Spontaneous tympanic membrane rupture: without spontaneous rupture Qualified Code: H66.002 - Acute suppurative otitis media of left ear without spontaneous rupture of tympanic membrane, recurrence not specified Additional Impression: Left ear pain Condition: Stable Patient Instructions: Otitis Media, Abx Tx (Adult) Additional Instructions: Recheck for new or worsening symptoms or primary care doctor. GRACIELA ELLIS MD Dec 11, 2016 11:40
[2016-12-11] MEDS ORDERED: ACETAMINOPHEN/CODEINE #3 TAB PO ONE (12:00)
[2016-12-11] MEDS ORDERED: IBUPROFEN 600 MG TAB PO ONE (12:00)
== END 2016-12-11 12:10 | disposition home or self-care (01) ==
LOC: FTE 10:00
DX: H66.002 Acute suppurative otitis media without spontaneous rupture of ear drum, left ear (principal); F17.210 Nicotine dependence, cigarettes, uncomplicated
CPT/HCPCS: Z7610 ×2; 99283

== ENCOUNTER 2016-12-18 15:01 | Emergency (ER) | payer MEDICAID ==
[~2016-12-18] VITALS: Ht 188 cm; Wt 100.0 kg
[~2016-12-18 15:01] MED LIST changes: +ACET1TAB40 PO; +ACET500C5 PO; +AMO500 PO; +AZIT250T94 PO; +NAPR-688 PO
[2016-12-18 15:08] VITALS: Ht 188 cm; Wt 100.0 kg
[2016-12-18] MEDS ORDERED: LIDOCAINE 1%/EPI 30 ML INJ INJ STA (15:40)
[2016-12-18] MEDS ORDERED: DIPHTH/TET/ACEL PERTUSS (ADULT) 0.5 ML VIAL IM* ONE (16:00)
[2016-12-18] MEDS ORDERED: BACITRACIN 0.9 GM OINT TOP ONE (16:00)
[2016-12-18] MEDS ORDERED: LIDOCAINE 2%/EPI MPF (SDV) 20 ML VIAL INJ ONE (16:00)
--- NOTE | 2016-12-18 16:00 | ERD ---
ER Documentation Chief Complaint Date/Time DATE: 12/18/16 TIME: 16:00 Chief Complaint Laceration to right wrist today HPI 36-year-old male comes in with a right wrist laceration that occurred this afternoon while he was grabbing in the trash can and accidentally cut himself against a glass bottle. ROS All systems reviewed and are negative except as per history of present illness. Medications Home Meds Active Scripts Cephalexin* (Keflex*) 500 Mg Capsule, 500 MG PO QID for 5 Days, CAP Prov:VEDA BRENNAN PA-C 12/18/16 Acetaminophen* (Tylophen*) 500 Mg Capsule, 1 CAP PO Q6H Y for PAIN AND OR ELEVATED TEMP, #20 CAP Prov:GLENROY DUARTE DO 12/16/16 Naproxen* (Naproxen*) 500 Mg Tablet, 500 MG PO BID Y for PAIN, #20 TAB Prov:GLENROY DUARTE DO 12/16/16 Azithromycin* (Zithromax*) 250 Mg Tablet, 250 MG PO .MarlenaPACK DIRECTED, #6 TAB TAKE 500 MG (2 TABS) THE FIRST DAY THEN 250 MG (1 TAB) DAYS 2-5 Prov:GLENROY DUARTE DO 12/16/16 Acetaminophen with Codeine (Acetaminophen-Cod #3 Tablet) 1 Each Tablet, 1 TAB PO Q6H Y for PAIN, #7 TAB Prov:GRACIELA ELLIS MD 12/11/16 Amoxicillin* (Amoxicillin*) 500 Mg Cap, 500 MG PO TID for 10 Days, CAP Prov:GRACIELA ELLIS MD 12/11/16 Ibuprofen* (Motrin*) 600 Mg Tab, 600 MG PO Q6, #15 TAB Prov:GRACIELA ELLIS MD 12/11/16 Neomycin/Polymyxin/Hydrocort* (Cortisporin* Otic) 10 Ml Susp, 4 DROP BOTH EARS QID for 7 Days, EA Prov:DO HERNANDEZ PA-C 12/09/16 Carbamide Peroxide* (Debrox*) 6.5% - 15 Ml Drops, 10 DROP BOTH EARS BID, #1 BOTTLE Prov:DO HERNANDEZ PA-C 12/09/16 Ibuprofen* (Motrin*) 600 Mg Tab, 600 MG PO Q6, #30 TAB Prov:DO HERNANDEZ PA-C 12/09/16 Loperamide Hcl* (Imodium*) 2 Mg Capsule, 2 MG PO BID Y for DIARRHEA, #6 CAP MAX 16 mg/day Prov:NICHOLE RENE MD 11/08/16 Lorazepam* (Lorazepam*) 1 Mg Tablet, 1 MG PO Q8H Y for ANXIETY, #8 TAB Prov:SIMON MENDEZ MD 10/27/16 Allergies Allergies: Coded Allergies: No Known Drug Allergy (Verified Allergy, Mild, 12/18/16) PMhx/Soc Medical and Surgical Hx: pt denies Surgical Hx History of Surgery: No Anesthesia Reaction: No Hx Neurological Disorder: No Hx Respiratory Disorders: No Hx Cardiac Disorders: No Hx Psychiatric Problems: Yes (anxiety) Hx Miscellaneous Medical Probl: Yes (broken jaw) Hx Alcohol Use: No Hx Substance Use: Yes (meth use 10/13/16) Hx Tobacco Use: Yes Smoking Status: Current every day smoker Physical Exam Vitals Vital Signs Date Time Temp Pulse Resp B/P Pulse Ox O2 Delivery O2 Flow Rate FiO2 12/18/16 15:08 98.4 84 20 142/84 97 Physical Exam General: Well-developed, well-nourished. The patient appears in no acute distress. HEENT: Head is normocephalic, atraumatic. No scleral icterus. Neck: Supple. Nontender. Lungs: Clear to auscultation. Normal air movement. Heart: Regular rate and rhythm. S1 and S2 are normal. No murmurs, gallops, or rubs. Abdomen: Nondistended. Extremities: R radial wrist has a 5cm laceration, no foreign body, no active bleeding. Radial, ulnar, medial nerve intact. No tendon visible. Neurologic: Alert and oriented 3. No focal deficits. Normal speech and gait. Skin: Normal turgor. No rash or lesions. Results 24 hrs Current Medications Medications (Trade) Dose Ordered Sig/Camilla Route PRN Reason Start Time Stop Time Status Last Admin Dose Admin Lidocaine/ Epinephrine (Xylocaine 1%/ Epi (Pf)) 30 ml ONCE STAT INJ 12/18/16 15:40 12/18/16 15:56 DC Bacitracin (Bacitracin Oint (Ud)) 1 applic ONCE ONCE TOP 12/18/16 16:00 12/18/16 16:01 DC 12/18/16 16:00 Lidocaine/ Epinephrine (Xylocaine 2%/ Epi Mpf(Sdv)) 20 ml ONCE ONCE INJ 12/18/16 16:00 12/18/16 16:01 DC 12/18/16 16:00 Diphtheria/ Tetanus/Acell Pertussis (Adacel) 0.5 ml ONCE ONCE IM* 12/18/16 16:00 12/18/16 16:01 DC 12/18/16 16:16 Procedures/MDM PROCEDURE: XR Wrist. CLINICAL INDICATION: Injury. Possible radiopaque foreign body, glass, after laceration. TECHNIQUE: AP, lateral and oblique views of the right wrist were performed. COMPARISON: No prior studies are available for comparison. FINDINGS: No evidence of fracture, dislocation, or subluxation is seen. The bones appear well mineralized. The joint spaces are well preserved. Focal soft tissue defect adjacent to the scaphoid bone and the styloid process of the radius is consistent with the historically known laceration. No radiopaque foreign body is present RPTAT:HJJR IMPRESSION: Focal laceration adjacent to the scaphoid bone and radial styloid process without radiopaque foreign body or acute osseous abnormality of the right wrist. Physician Loraine Date Time Electronically viewed and signed by Physician Loraine on 12/18/2016 16:33 JR/ Laceration Repair by me: Patient was verbally consented Anesthesia: lidocaine 2% w epi, 5cc Location: R wrist Tendon/Joint/Nerves: No injury Foreign body: None detected after copious irrigation and exploration Technique: Simple Interrupted Sutures 7 using 4-0 Ethilon Complexity: No subcutaneous sutures/mucosal repair/ edge excision Post Closure Length: 5 cm Patient's bleeding was easily controlled in the department and there is no indication of anemia. No evidence of compartment syndrome, neurologic injury, vascular injury, open joint, tendon laceration, or foreign body. Patient is appropriate for outpatient follow up. 48 hour wound check. Scar minimization instructions given. The wound was dressed, bacitracin was applied. Pt's right wrist was splinted with a Velcro wrist splint. Splint Assessment: Neurovascularly intact post splint placement with good fit. MDM: 36-year-old male comes with right radial wrist laceration from glass bottle. Patient states he was grabbing into the trash, laceration was approximately 5 cm over the radial wrist, there is no tendon visible, no neuropathy seen. No glass, no fracture. X-ray was unremarkable. Laceration was closed without any complications. Departure Diagnosis: Primary Impression: Laceration Condition: Good VEDA BRENNAN PA-C Dec 18, 2016 16:00
--- NOTE | 2016-12-18 16:34 | RADRPT ---
PROCEDURE: XR Wrist. CLINICAL INDICATION: Injury. Possible radiopaque foreign body, glass, after laceration. TECHNIQUE: AP, lateral and oblique views of the right wrist were performed. COMPARISON: No prior studies are available for comparison. FINDINGS: No evidence of fracture, dislocation, or subluxation is seen. The bones appear well mineralized. The joint spaces are well preserved. Focal soft tissue defect adjacent to the scaphoid bone and the sty loid process of the radius is consistent with the historically known laceration. No radiopaque forei gn body is present RPTAT:HJJR IMPRESSION: Focal laceration adjacent to the scaphoid bone and radial styloid process without radiopaque foreign body or acute osseous abnormality of the right wrist. Physician Loraine Date Time Electronically viewed and signed by Physician Loraine on 12/18/2016 16:33 /
[2016-12-18] MEDS ORDERED: CEPH-443 PO (17:07)
== END 2016-12-18 17:20 | disposition home or self-care (01) ==
LOC: FTE 15:01
DX: S61.511A Laceration without foreign body of right wrist, initial encounter (principal); F17.210 Nicotine dependence, cigarettes, uncomplicated; W25.XXXA Contact with sharp glass, initial encounter; Y92.9 Unspecified place or not applicable; Z23 Encounter for immunization
CPT/HCPCS: 12002; 73110; 90471; 90715; Z7502; Z7610

== ENCOUNTER 2017-01-01 18:27 | Emergency (ER) | payer MEDICAID ==
[~2017-01-01] VITALS: Ht 182.9 cm; Wt 83.5 kg
[~2017-01-01 18:27] MED LIST changes: -CARB15DR48 BOTH EARS; +CARB15DR50 BOTH EARS; +CEPH-443 PO
[2017-01-01 18:33] VITALS: Ht 182.9 cm; Wt 83.5 kg
[2017-01-01] MEDS ORDERED: KETOROLAC 60 MG INJ IM STA (19:06)
--- NOTE | 2017-01-01 19:30 | RADRPT ---
PROCEDURE: CT Brain without. CLINICAL INDICATION: Headache TECHNIQUE: A CT of the brain was performed utilizing axial sections from the skull base through th e vertex without contrast. The scan was reviewed in soft tissue brain and high frequency resolution bone algorithm windows. Images were reviewed on a high-resolution PACS workstation. images. The c alculated radiation dose measures 720.23 mGy centimeters. The CTDI measures 44.11 mGy. One or more of the following dose reduction techniques were used: - Automated exposure control. - Adjustment of the mA and/or kV according to patient size . - Use of iterative reconstruction technique. Images were reviewed on a high-resolution PACS workstation COMPARISON: None available FINDINGS: There is degradation secondary patient motion. The study remains diagnostic. The ventricles and sulci are symmetric and normal in size and morphology. There is no evidence of i ntracranial hemorrhage, mass effect, edema or midline shift. No abnormal intra-axial or extra-axial fluid collections are seen. The density of the brain is normal and the [place]/white matter different iation is well preserved. Brainstem and posterior fossa structures are equally unremarkable. The o sseous structures and visualized paranasal sinuses are unremarkable. The surrounding soft tissue sc alp and bony calvarium are intact and normal. IMPRESSION: 1. No acute intracranial findings. RPTAT: HH .Sulaiman Amador MD, MD Date Time Electronically viewed and signed by .Sulaiman Amador MD, MD on 01/01/2017 19:30 .d/
[2017-01-01] MEDS ORDERED: ASPI1TAB30 PO (19:41)
--- NOTE | 2017-01-01 19:45 | ERD ---
ER Documentation Chief Complaint Date/Time DATE: 01/01/17 TIME: 19:42 Chief Complaint headache x 4 days HPI 36-year-old male presents with headache that he states he has had for 1 week. Is gradual in onset and bilateral. Denies any trauma, fever, nausea, vomiting, photosensitivity, or visual changes. Take anti-inflammatories at home which helped temporarily. He also has healing laceration with sutures in place on the right wrist. ROS All systems reviewed and are negative except as per history of present illness. Medications Home Meds Active Scripts Aspirin/Acetaminophen/Caffeine (Excedrin Migraine Caplet) 1 Each Tablet, 1 EACH PO Q6, #30 TAB Prov:JOSE FAN PA-C 01/01/17 Cephalexin* (Keflex*) 500 Mg Capsule, 500 MG PO QID for 5 Days, CAP Prov:VEDA BRENNAN PA-C 12/18/16 Acetaminophen* (Tylophen*) 500 Mg Capsule, 1 CAP PO Q6H Y for PAIN AND OR ELEVATED TEMP, #20 CAP Prov:GLENROY DUARTE DO 12/16/16 Naproxen* (Naproxen*) 500 Mg Tablet, 500 MG PO BID Y for PAIN, #20 TAB Prov:GLENROY DUARTE DO 12/16/16 Azithromycin* (Zithromax*) 250 Mg Tablet, 250 MG PO .HUNTER DIRECTED, #6 TAB TAKE 500 MG (2 TABS) THE FIRST DAY THEN 250 MG (1 TAB) DAYS 2-5 Prov:GLENROY DUARTE DO 12/16/16 Acetaminophen with Codeine (Acetaminophen-Cod #3 Tablet) 1 Each Tablet, 1 TAB PO Q6H Y for PAIN, #7 TAB Prov:GRACIELA ELLIS MD 12/11/16 Amoxicillin* (Amoxicillin*) 500 Mg Cap, 500 MG PO TID for 10 Days, CAP Prov:GRACIELA ELLIS MD 12/11/16 Ibuprofen* (Motrin*) 600 Mg Tab, 600 MG PO Q6, #15 TAB Prov:GRACIELA ELLIS MD 12/11/16 Neomycin/Polymyxin/Hydrocort* (Cortisporin* Otic) 10 Ml Susp, 4 DROP BOTH EARS QID for 7 Days, EA Prov:DO HERNANDEZ PA-C 12/09/16 Carbamide Peroxide* (Debrox*) 6.5% - 15 Ml Drops, 10 DROP BOTH EARS BID, #1 BOTTLE Prov:DO HERNANDEZ PA-C 12/09/16 Ibuprofen* (Motrin*) 600 Mg Tab, 600 MG PO Q6, #30 TAB Prov:DO HERNANDEZ PA-C 12/09/16 Loperamide Hcl* (Imodium*) 2 Mg Capsule, 2 MG PO BID Y for DIARRHEA, #6 CAP MAX 16 mg/day Prov:NICHOLE RENE MD 11/08/16 Lorazepam* (Lorazepam*) 1 Mg Tablet, 1 MG PO Q8H Y for ANXIETY, #8 TAB Prov:SIMON MENDEZ MD 10/27/16 Allergies Allergies: Coded Allergies: No Known Drug Allergy (Verified Allergy, Mild, 01/01/17) PMhx/Soc History of Surgery: No Anesthesia Reaction: No Hx Neurological Disorder: No Hx Respiratory Disorders: No Hx Cardiac Disorders: No Hx Psychiatric Problems: Yes (anxiety) Hx Miscellaneous Medical Probl: Yes (broken jaw) Hx Alcohol Use: No Hx Substance Use: No Hx Tobacco Use: Yes Smoking Status: Never smoker FmHx Family History: No diabetes Physical Exam Vitals Vital Signs Date Time Temp Pulse Resp B/P Pulse Ox O2 Delivery O2 Flow Rate FiO2 01/01/17 18:33 98.6 83 20 102/65 97 Physical Exam General: well developed, well nourished, alert, nontoxic, no distress Head: normocephalic, atraumatic Eyes: PERRL, normal conjunctiva Neck: Supple, nontender, no lymphadenopathy, no midline tenderness Respiratory: Clear to auscaultation bilaterally, speaks in full sentences, no use of accesory muscles or labored breathing, no rales, ronchi, or wheezing Cardiovascular: RRR, No murmurs Skin: Healing laceration on right wrist with sutures in place, no erythema or edema Neuro: CN 2-12 intact, normal speech, 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 His neurological examination is normal. He would like a CT scan and I explained the risks and benefits of CT scan and he understood and CT scan was ordered and it was normal. He also has a healing laceration on his right wrist with sutures in place they were placed 1 week ago. At this time the sutures are ready to come out so I took him out, 6 in total. Recommended this patient follow up with her primary care doctor within 48 hours or return to the emergency room for any worsening of symptoms. However this time I do believe there is suitable for outpatient management. I answered all their questions and they agreed with the plan and were discharged home. Departure Diagnosis: Primary Impression: Visit for suture removal Additional Impression: Headache Condition: Stable Patient Instructions: Self-Care for Headaches Additional Instructions: Call your primary care doctor TOMORROW for an appointment during the next 1-2 days.See the doctor sooner or return here if your condition worsens before your appointment time. JOSE FAN PA-C Jan 01, 2017 19:45
[2017-01-01 19:48] VITALS: BP 119/77; PULSE 62; RESP 20; TEMP 98.6
== END 2017-01-01 19:50 | disposition home or self-care (01) ==
LOC: FTE 18:27
DX: R51 Headache (principal); Z48.02 Encounter for removal of sutures; Z87.891 Personal history of nicotine dependence
CPT/HCPCS: 70450; 96372; J1885; Z7502

== ENCOUNTER 2017-01-10 16:28 | Emergency (ER) | payer MEDICAID ==
[~2017-01-10] VITALS: Ht 177.8 cm; Wt 87.0 kg
[~2017-01-10 16:28] MED LIST changes: +ASPI1TAB30 PO; +CARB15DR48 BOTH EARS; -CARB15DR50 BOTH EARS
[2017-01-10 16:32] VITALS: Ht 177.8 cm; Wt 87.0 kg
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
[2017-01-10] MEDS ORDERED: KETOROLAC 60 MG INJ IM STA (16:49)
[2017-01-10] MEDS ORDERED: AMOX1TAB10 PO (16:53)
[2017-01-10] MEDS ORDERED: IBUP800T25 PO (16:53)
== END 2017-01-10 17:20 | disposition home or self-care (01) ==
LOC: FTE 16:28
DX: J32.9 Chronic sinusitis, unspecified (principal); R51 Headache; F17.210 Nicotine dependence, cigarettes, uncomplicated; Z79.82 Long term (current) use of aspirin
CPT/HCPCS: 96372; J1885

== ENCOUNTER 2017-01-16 14:54 | Emergency (ER) | payer MEDICAID ==
[~2017-01-16] VITALS: Ht 190.5 cm; Wt 87.5 kg
[~2017-01-16 14:54] MED LIST changes: +AMOX1TAB10 PO; +IBUP800T25 PO
[2017-01-16 14:58] VITALS: Ht 190.5 cm; Wt 87.5 kg
[2017-01-16] MEDS ORDERED: FLUT9.9S NASAL (15:47)
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
== END 2017-01-16 16:18 | disposition left against medical advice (07) ==
LOC: FTE 14:54
DX: H93.93 Unspecified disorder of ear, bilateral (principal); Z79.82 Long term (current) use of aspirin
CPT/HCPCS: 99283

== ENCOUNTER 2017-05-06 22:42 | Emergency (ER) | payer MEDICAID ==
[~2017-05-06] VITALS: Ht 172.7 cm; Wt 90.0 kg
[~2017-05-06 22:42] MED LIST changes: -AMO500 PO; +AMOX500C2 PO; -ASPI1TAB30 PO; +ASPI1TAB31 PO; -CARB15DR48 BOTH EARS; +CARB15DR50 BOTH EARS; +FLUT9.9S NASAL
[2017-05-06 22:45] VITALS: Ht 172.7 cm; Wt 90.0 kg
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
[2017-05-07] MEDS ORDERED: IBUPROFEN 600 MG TAB PO ONE
--- NOTE | 2017-05-07 01:03 | RADRPT ---
PROCEDURE: XR hand. CLINICAL INDICATION: Trauma TECHNIQUE: AP, lateral and oblique views of the right hand was obtained. COMPARISON: 12/18/2016 FINDINGS: There is an acute to subacute fracture within the head of the fourth metacarpal bone with some mild volar angulation. Overlying soft tissue swelling is noted. There is deformity at the base of the fif th metacarpal bone compatible with chronic, healed fracture. No osseous erosions are identified. Th e joint spaces are within normal limits. IMPRESSION: Acute fracture of the fourth metacarpal head. RPTAT: HIKT .Sven Lizarraga MD, Date Time Electronically viewed and signed by .Sven Lizarraga MD, on 05/07/2017 01:03 .T/
[2017-05-07] MEDS ORDERED: IBUP-1542 PO (01:53)
== END 2017-05-07 02:42 | disposition home or self-care (01) ==
LOC: FTE 22:42
DX: S62.394A Other fracture of fourth metacarpal bone, right hand, initial encounter for closed fracture (principal); F17.210 Nicotine dependence, cigarettes, uncomplicated; V18.4XXA Pedal cycle driver injured in noncollision transport accident in traffic accident, initial encounter
CPT/HCPCS: 29125; 73130; Z7502; Z7610